=== PATIENT | male | born 1995 | race Caucasian/White ===

== ENCOUNTER 2018-11-02 20:48 | Emergency (ER) | payer SELFPAY ==
[~2018-11-02] VITALS: Ht 170.2 cm; Wt 54.0 kg
[2018-11-02 21:32] VITALS: Ht 170.2 cm; Wt 54.0 kg
[2018-11-02 23:57] VITALS: BP 124/66
== END 2018-11-02 23:57 | disposition home or self-care (01) ==
LOC: ED 20:48
DX: R11.10 Vomiting, unspecified (principal); R19.7 Diarrhea, unspecified; R10.9 Unspecified abdominal pain
CPT/HCPCS: Q0162